=== PATIENT | female | born 1970 | race Caucasian/White ===

== ENCOUNTER 2018-07-19 02:29 | Emergency (ER) | payer OTHER ==
[~2018-07-19] VITALS: Ht 165.1 cm; Wt 48.1 kg
[~2018-07-19 02:29] MED LIST: ADVIL PO; APAP500 PO; SYNTHROID175 MCG PO; ZANTAC 150MG T150 M1 PO
[2018-07-19 02:54] LABS: URINE BILIRUBIN NEGATIVE (Negative); URINE BLOOD 3+ (Negative); URINE CLARITY CLEAR; URINE COLOR YELLOW; URINE GLUCOSE-RANDOM NEGATIVE (Negative); URINE KETONES TRACE (Negative); URINE LEUKOCYTES-REFLEX NEGATIVE (Negative); URINE NITRITE-REFLEX NEGATIVE (Negative); URINE PROTEIN NEGATIVE (Negative); URINE UROBILINOGEN 0.2 E.U./dl (0.2-1.0)
[2018-07-19 02:59] LABS: CASTS None Seen /LPF (None Seen); SQUAMOUS >10 Many /LPF (0-3)
[2018-07-19 03:00] LABS: URINE RBC >20 Many /HPF (0-2); URINE WBC-REFLEX 0-5 Rare /HPF (0-5)
[2018-07-19 03:01] LABS: BACTERIA-REFLEX >30 Many /HPF (None Seen); CRYSTALS None Seen /LPF (None Seen)
[2018-07-19] MEDS ORDERED: NORCO 7.5-3251 EACH PO (04:58)
[2018-07-19] MEDS ORDERED: FLOMAX0.4 MG PO (04:58)
[2018-07-19] MEDS ORDERED: ZOFRAN ODT4 MG PO (04:58)
[2018-07-19 05:15] VITALS: BP 106/58
== END 2018-07-19 05:15 | disposition home or self-care (01) ==
LOC: M.ERS 02:29
PROVIDERS: Emergency Medicine
DX: N20.0 Calculus of kidney (principal); E03.9 Hypothyroidism, unspecified; K21.9 Gastro-esophageal reflux disease without esophagitis; Z90.710 Acquired absence of both cervix and uterus; Z88.8 Allergy status to other drugs, medicaments and biological substances; Z91.041 Radiographic dye allergy status; Z98.890 Other specified postprocedural states; Z86.2 Personal history of diseases of the blood and blood-forming organs and certain disorders involving the immune mechanism; Z90.721 Acquired absence of ovaries, unilateral